=== PATIENT | male | born 1980 | race American Indian/Alaskan Native ===

== ENCOUNTER 2021-10-04 12:58 | Emergency (ER) | payer SELFPAY ==
[2021-10-04 13:10] VITALS: BP 142/85
[2021-10-04] MEDS ORDERED: ACETAMINOPHEN 325 MG TAB PO ONE (16:28)
--- NOTE | 2021-10-04 16:34 | Emergency Department Report ---
ED Lower Extremity HPI - General Chief Complaint: Extremity Injury, Lower Stated Complaint: FOOT PAIN Time Seen by Provider: 10/04/21 15:51 Source: patient Mode of arrival: Ambulatory Limitations: No Limitations - History of Present Illness Initial Comments: This is a 41-year-old gentleman presenting to the ER today with complaint of left plantar foot pain, medial, and left great toe pain, nontraumatic, suspicious for exacerbation of known chronic plantar fasciitis. Denies additional injuries and complaints. Positive relief with rest, ice, payton yamil, elevation, and supportive care. Still having mild left great toe pain, after conservative measures. MD Complaint: other -: week(s) Injury: Foot: Left, Toes: Left Type of Injury: unknown Place: home Severity: moderate Improves With: rest Worsens With: movement, palpation Treatments Prior to Arrival: NSAIDS, other (Takes out the soles in his shoes.) - Related Data Previous Rx's Medication Instructions Recorded Last Taken Type Acetaminophen [8 Hour 650 mg PO Q6HR PRN #30 tab 10/04/21 Unknown Rx Acetaminophen] Naproxen [Naprosyn] 500 mg PO BID PRN #30 tablet 10/04/21 Unknown Rx Allergies Allergy/AdvReac Type Severity Reaction Status Date / Time No Known Allergies Allergy Unverified 10/04/21 13:07 ED Review of Systems ROS: Stated complaint: FOOT PAIN Other details as noted in HPI Musculoskeletal: arthralgia ED Past Medical Hx - Medications Home Medications: Home Medications Medication Instructions Recorded Confirmed Last Taken Type Acetaminophen [8 Hour 650 mg PO Q6HR PRN #30 tab 10/04/21 Unknown Rx Acetaminophen] Naproxen [Naprosyn] 500 mg PO BID PRN #30 tablet 10/04/21 Unknown Rx ED Physical Exam - General Limitations: No Limitations General appearance: alert, in no apparent distress - Head Head exam: Present: atraumatic, normocephalic - Eye Eye exam: Present: normal appearance, EOMI. Absent: nystagmus - ENT ENT exam: Present: normal exam, normal orophraynx, mucous membranes moist, normal external ear exam - Neck Neck exam: Present: normal inspection, full ROM. Absent: tenderness, meningismus - Respiratory Respiratory exam: Present: normal lung sounds bilaterally. Absent: respiratory distress, wheezes, rales, rhonchi, stridor, decreased breath sounds - Cardiovascular Cardiovascular Exam: Present: regular rate, normal rhythm, normal heart sounds. Absent: bradycardia, tachycardia, irregular rhythm, systolic murmur, diastolic murmur, rubs, gallop - GI/Abdominal GI/Abdominal exam: Present: soft. Absent: distended, tenderness, guarding, rebound, rigid, pulsatile mass - Rectal Rectal exam: Present: deferred - Extremities Exam Extremities exam: Present: normal inspection, full ROM, tenderness (Minimal tenderness noted to the plantar aspect of the left foot, medial aspect. There is minimal left great toe tenderness. There is no redness, pus, streaking or), other (2+ pulses noted in the bilateral upper extremities and left lower extremity. There is no long bony tenderness. The muscular compartments are soft. The pelvis is stable). Absent: pedal edema, calf tenderness - Back Exam Back exam: Present: normal inspection. Absent: tenderness, CVA tenderness (R), CVA tenderness (L), paraspinal tenderness, vertebral tenderness - Neurological Exam Neurological exam: Present: alert, oriented X3, normal gait, other (No facial droop. Tongue midline. Extraocular movements intact bilaterally. Facial sensation intact to light touch in V1, V2, V3 distribution bilaterally. 5 and a 5 strength in 4 extremities. Sensation intact to light touch in 4 extremi ties.). Absent: motor sensory deficit - Psychiatric Psychiatric exam: Present: normal affect, normal mood - Skin Skin exam: Present: warm, dry, intact, normal color. Absent: rash ED Course Vital Signs 10/04/21 13:08 Temperature 98.3 F Pulse Rate 81 Respiratory 18 Rate Blood Pressure 142/85 [Right] O2 Sat by Pulse 98 Oximetry ED Lower Extremity MDM - Lab Data Vital Signs 10/04/21 13:08 Temperature 98.3 F Pulse Rate 81 Respiratory 18 Rate Blood Pressure 142/85 [Right] O2 Sat by Pulse 98 Oximetry - Medical Decision Making Differential diagnosis, including but not limited to: Arthritis, DJD, plantar fasciitis Assessment and plan: 41-year-old gentleman with weeks of left foot pain. He is afebrile with reassuring vital signs, with no evidence of redness, pus, streaking, muscular compartments are soft. His examination is not consistent with cellulitis. He does not appear to have an emergent medical condition present at this time. Rest, ice, compression, elevation, wide with shoes, sole inserts, supportive care, outpatient follow-up Critical care attestation.: If time is entered above; I have spent that time in minutes in the direct care of this critically ill patient, excluding procedure time. ED Disposition Clinical Impression: Left foot pain Disposition: HOME / SELF CARE / HOMELESS Is pt being admited?: No Does the pt Need Aspirin: No Condition: Good Instructions: Foot Pain Additional Instructions: Please alternate ice packs and heat packs as needed for physical pain improvement. Recommend that patient purchase shoes with a wide length/width, and purchase heel inserts. Also recommend that patient consider freezing a water can or water bottle, and rolling foot over water can or water bottle as often as as needed for pain improvement. Recommend follow-up with a primary care doctor or ladle puller within the next week. Weightbearing as tolerated, physical activities as tolerated. Please return to the emergency room right away with new pain, worsened pain, migration of pain, projectile vomiting, change in mental status, confusion, inability tolerate liquid feeds, new, worsened or different symptoms not present on the initial emergency room evaluation Referrals: LOLLY LEES DPM [Staff Physician] - 3-5 Days [facility] [Provider Group] - 3-5 Days Forms: Work/School Release Form(ED)
[2021-10-04] MEDS ORDERED: IBUPROFEN 800 MG TAB PO ONE (17:00)
[2021-10-04] MEDS ORDERED: NAPROXEN 500 MG TAB PO ONE (17:00)
== END 2021-10-04 17:08 | disposition home or self-care (01) ==
LOC: ED 12:58
DX: M79.672 Pain in left foot (principal); Z79.899 Other long term (current) drug therapy
CPT/HCPCS: 99282